=== PATIENT | male | born 1985 ===

== ENCOUNTER 2023-07-14 10:47 | Outpatient (OUT) | payer OTHER, SELFPAY ==
--- NOTE | 2023-07-14 | XR_ITS ---
[address] [address] Patient Name: AMAURI RUSH MRN: [id number] date: 1985 Sex: M Assigned Patient Location: [facility] Current Patient Location: Accession/Order Number: [id number] Exam Date: 07/14/2023 11:05 Report Date: 07/15/2023 08:09 At the request of: JA RODRIGUEZ Procedure: XR foot LINH min 3V EXAMINATION: XR foot LINH min 3V HISTORY: BILATERAL FOOT PAIN COMPARISON: No relevant comparison available. FINDINGS: RIGHT FINDINGS: BONES: No acute fracture. Marked subchondral lytic changes most significant in the metatarsal phalangeal joints. Lateral subluxation second distal phalanx. Flexion deformity of the second toe. Enthesopathic spurring of the calcaneus. SOFT TISSUES: Negative. No visible soft tissue swelling. OTHER: Negative. LEFT FINDINGS: BONES: No acute fracture. Marked subchondral lytic changes most significant along the metatarsophalangeal joints. Unusual appearance of the fifth metatarsal phalangeal joint could represent postsurgical or degenerative changes. Flexion deformity of the second toe. Flattening of the plantar arch. SOFT TISSUES: Negative. No visible soft tissue swelling. OTHER: Negative. 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
== END 2023-07-14 10:48 | disposition home or self-care (01) ==
PROVIDERS: Visit Provider Physician Assistant
DX: M79.671 Pain in right foot (principal); M79.672 Pain in left foot
CPT/HCPCS: 73630